=== PATIENT | female | born 1950 | race Caucasian/White ===

== ENCOUNTER 2016-08-25 | Emergency (ER) | payer OTHER ==
[2016-08-25 00:28] LABS: URINE BILIRUBIN 3+ (NEGATIVE); URINE BLOOD TRACE (NEGATIVE); URINE GLUCOSE (UA) NORMAL (NORMAL); URINE KETONE NEGATIVE (NEGATIVE); URINE LEUKOCYTE ESTERASE TRACE (NEGATIVE); URINE PROTEIN TRACE (NEGATIVE)
[2016-08-25 00:29] LABS: URINE AMORPHOUS SEDIMENT TRACE; URINE NITRATE POSITIVE (NEGATIVE); URINE SQUAMOUS EPITHELIAL CELL 0-10 /[HPF] (NONE SEEN); URINE WBC 0-5 /[HPF] (0-5)
== END 2016-08-25 02:10 | disposition home or self-care (01) ==
LOC: ER
PROVIDERS: General Practice
DX: N21.1 Calculus in urethra (principal); N32.89 Other specified disorders of bladder; R10.9 Unspecified abdominal pain; K80.20 Calculus of gallbladder without cholecystitis without obstruction; I10 Essential (primary) hypertension; R30.0 Dysuria; K76.9 Liver disease, unspecified; Z87.442 Personal history of urinary calculi; Z88.1 Allergy status to other antibiotic agents; Z79.899 Other long term (current) drug therapy; Z79.1 Long term (current) use of non-steroidal anti-inflammatories (NSAID)
CPT/HCPCS: 81001; 87086; 99070; 99283; 99283-25